=== PATIENT | female | born 1970 | race Caucasian/White ===

== ENCOUNTER 2019-04-03 14:42 | Outpatient (CLI) | payer OTHER, SELFPAY ==
--- NOTE | ~2019-04-03 | MR_ITS ---
EXAMINATION: MR foot RT wo con DATE: 04/03/2019 15:46 INDICATION: Right foot pain TECHNIQUE: Magnetic resonance imaging (MRI) of the right fore/mid foot was performed without intraven ous contrast. Sequences included sagittal T1-weighted FSE, sagittal fluid sensitive FSE STIR, coronal PD-weighted FS FSE, coronal T1-weighted FSE, axial PD-weighted FS FSE, and axial PD-weighted FSE. Ad ditional sagittal T1-weighted FSE and fluid sensitive FSE STIR and axial T2-weighted FS FSE of the mi d and hindfoot. COMPARISON: Right foot radiographs dated 12/08/2018 FINDINGS: Bone alignment is normal. Normal marrow signal with no reactive edema, fracture or pathologic marrow replacing process. Mild osteoarthritis at the first metatarsophalangeal and second and third tarsal m etatarsal joints. Lisfranc ligament complex as well as the collateral ligament complex at the metatar sophalangeal and interphalangeal joints are normal. Intrinsic musculature of the foot as well as the visualized portions of the flexor and extensor tendons appear normal. The medial and lateral stabiliz ing ligaments of the ankle appear normal. Sinus Tarsi is unremarkable. Physiologic amount fluid in th e joint space. No abnormal fluid collections identified. IMPRESSION: 1. Unremarkable MRI of the right foot. No etiology identified for the pain reported at the dorsal asp ect of the lateral midfoot. Reviewed, dictated and finalized at location A. NE PILOT IMPRESSION: 1. Unremarkable MRI of the right foot. No etiology identified for the pain repo rted at the dorsal aspect of the lateral midfoot.
== END 2019-04-03 14:43 | disposition home or self-care (01) ==
LOC: ANHIMG 14:47
PROVIDERS: PCP Physician Assistant Medical; Visit Provider Nurse Practitioner Family
DX: M79.671 Pain in right foot (principal); G89.29 Other chronic pain
CPT/HCPCS: 73718

== ENCOUNTER 2019-11-16 10:38 | Outpatient (CLI) | payer OTHER, SELFPAY ==
--- NOTE | ~2019-11-16 | CT_ITS ---
EXAMINATION: CT abdomen pelvis w con DATE: 11/16/2019 11:05 INDICATION: Right lower quadrant abdominal pain. Hematuria. TECHNIQUE: Computed tomography (CT) of the abdomen and pelvis was performed with 100 cc Omnipaque 350 intravenous contrast. Automated exposure control and iterative reconstruction technique were employe d. Exam dose: 315.30 mGy-cm total exam DLP. COMPARISON: 03/11/2017 CT abdomen pelvis FINDINGS: There are bilateral fat-containing foramen of Bochdalek hernias. The lung bases are clear o f infiltrate or consolidation. There is an approximately 1 cm right hepatic lobe cyst. Status post cholecystectomy. No bile duct dilatation.. Normal splenic size. No pancreatic mass lesion or calcification or ductal dilatation. Normal morphology of the adrenal glands. No renal mass lesion or urinary tract calculus or hydroureteronephrosis. There is an IUD within the uterus. Mild colonic diverticulosis; no CT evidence of diverticulitis. No bowel obstruction, bowel wall thick ening, pneumatosis or intraperitoneal free air. No CT evidence of appendicitis. Normal caliber of the abdominal aorta. No intraperitoneal or retroperitoneal or pelvic mass lesion or adenopathy or ascites. Small fat-containing umbilical hernia. Included skeletal structures are unremarkable. IMPRESSION: Bilateral fat-containing foramen of Bochdalek hernias 1 cm hepatic cyst IUD within uterus Mild colonic diverticulosis; no CT evidence of diverticulitis No CT evidence of appendicitis Reviewed, dictated and finalized at Location A. Reviewed, dictated and finalized at location B.
[2019-11-16 12:04] LABS: Basophils Percent Auto 0.6 % (0.2-1.2); Eosinophils Absolute Auto 0.1 K/mm3 (0-0.3); Eosinophils Percent Auto 2.7 % (0-4.4); Hematocrit 42.6 % (37.0-47.0); Hemoglobin 14.7 g/dL (12.0-15.0); Immature Granulocyte Absolute 0.01 K/mm3 (0.00-0.031); Immature Granulocyte Percent A 0.2 % (0-0.5); Lymphocytes Absolute Auto 1.67 K/mm3 (0.9-3.2); Lymphocytes Percent Auto 31.8 % (18.3-44.2); Mean Corpuscular HGB Conc 34.5 g/dl (32-36); Mean Corpuscular Hemoglobin 31.6 pg (26-34); Mean Corpuscular Volume 91.6 fl (80-100); Mean Platelet Volume 8.8 fl (7.4-10.4); Monocytes Absolute Auto 0.5 K/mm3 (0.1-0.6); Monocytes Percent Auto 8.6 % (2.6-8.5); Neutrophils Percent Auto 56.1 % (45.5-73.1); Platelet Count Result 281 k/mm3 (150-375); Red Blood Count 4.65 M/mm3 (4.2-5.4); White Blood Count 5.3 K/mm3 (4.5-10.0)
[2019-11-16 12:19] LABS: Anion Gap 8 mmol/L (8-16); Blood Urea Nitrogen 11 mg/dL (7-17); Calcium 9.2 mg/dL (8.4-10.2); Carbon Dioxide 32 mmol/L (22-30); Chloride 99 mmol/L (98-107); Cholesterol 191 mg/dL (0-200); Estimated Glomerular Filt Rate > 60; Glucose 93 mg/dL (65-105); HDL Direct 67 mg/dL; Potassium 3.6 mmol/L (3.4-5.0); Sodium 139 mmol/L (137-145); Triglycerides 77 mg/dL (<150)
[2019-11-16 12:30] LABS: LDL Cholesterol Direct 97 mg/dL
[2019-11-16 12:49] LABS: Thyroid Stimulating Hormone 0.488 uIU/mL (0.465-4.680)
[2019-11-16 13:38] LABS: Vitamin D 25 Hydroxy 40.8 ng/mL
== END 2019-11-16 10:39 | disposition home or self-care (01) ==
PROVIDERS: PCP Family Medicine; Referring Provider Nurse Practitioner Family; Visit Provider Physician Assistant Medical
DX: R10.31 Right lower quadrant pain (principal); R31.9 Hematuria, unspecified; Z97.5 Presence of (intrauterine) contraceptive device; K57.30 Diverticulosis of large intestine without perforation or abscess without bleeding
CPT/HCPCS: 36415; 74177; 80048; 80061; 82306; 84443; 85025; Q9967

== ENCOUNTER → 2020-12-29 13:18 | Outpatient (CLI) | payer OTHER, SELFPAY ==
--- NOTE | ~2020-12-29 | MM_ITS ---
EXAMINATION: MM screening [facility] BI w oliver HISTORY: Screening mammogram TECHNIQUE: Craniocaudal and mediolateral oblique 3-D tomosynthesis images were obtained and synthetic 2-D images were generated. CAD analysis was submitted and interpreted. COMPARISON: 07/03/2014 bilateral screening mammogram BREAST PARENCHYMAL COMPOSITION: The breasts are extremely dense, which lowers the sensitivity of mamm ography. FINDINGS: There is a 12 mm mass with spiculation in the upper mid right breast. Approximately 8 mm asymmetry is noted anteriorly in the lower outer left breast. IMPRESSION: 1. Upper mid right breast mass with spiculation and 8 mm asymmetry in the lower outer left breast 2. Bilateral diagnostic mammography and bilateral breast ultrasound examination are recommended BI-RADS Category 0: Incomplete: Needs additional imaging evaluation. Reviewed, dictated and finalized at location A. RY STRIPPER
== END ==
PROVIDERS: PCP Family Medicine; Visit Provider Family Medicine
DX: Z12.31 Encounter for screening mammogram for malignant neoplasm of breast (principal); R92.8 Other abnormal and inconclusive findings on diagnostic imaging of breast
CPT/HCPCS: 77063; 77067

== ENCOUNTER → 2021-02-10 00:35 | Outpatient (CLI) | payer OTHER, SELFPAY ==
[2021-02-10 19:19] LABS: SARS-CoV-2 RNA PCR Negative
== END ==
PROVIDERS: PCP Family Medicine; Visit Provider Physician Assistant Medical
DX: R68.89 Other general symptoms and signs (principal); Z20.822 Contact with and (suspected) exposure to COVID-19
CPT/HCPCS: C9803; U0003; U0005

== ENCOUNTER 2021-02-15 11:59 | Outpatient (CLI) | payer OTHER, SELFPAY ==
--- NOTE | ~2021-02-15 | MMUS_ITS ---
EXAMINATION: MM diagnostic mamta BI w oliver, US breast RT complete HISTORY: Follow-up right breast mass and left breast asymmetry TECHNIQUE: Additional 3-D tomosynthesis images of the breasts were performed and synthetic 2-D images were generated. CAD analysis was submitted and interpreted. High resolution complete right breast ul trasound was performed. COMPARISON: Comparison to multiple prior studies sequentially, with oldest reviewed study dated 07/03. BREAST PARENCHYMAL COMPOSITION: The breasts are extremely dense, which lowers the sensitivity of mamm ography FINDINGS: MAMMOGRAPHIC FINDINGS: There is a spiculated mass in the upper central aspect of the right breast posteriorly. There are no suspicious masses, calcifications or architectural distortion in the left breast to suggest malignanc y. ULTRASOUND: Complete bilateral US of all 4 quadrants of the right breast and retroareolar region was reviewed. At 12:00, 3 cm from the nipple, there is an irregular shaped hypoechoic mass measuring 10 x 8 x 10 mm w ithout significant posterior features or internal vascularity. There is heterogeneous internal echote xture. At 7:00, 3 cm from the nipple, there is an oval hypoechoic mass with parallel orientation, no significant posterior features and no internal vascularity measuring 5 mm maximum dimension, likely b enign. At 5:00, 1 cm from the nipple, there is a probable complicated cyst measuring 4 mm maximum dim ension. IMPRESSION: 1. Spiculated mass of the right breast, upper central aspect with corresponding sonographic abnormali ty measuring 10 mm maximum dimension. Ultrasound-guided right breast biopsy recommended. 2. Probable benign masses of the right breast at 5 and 7:00. Six-month follow-up right breast ultraso und for these abnormalities recommended. BI-RADS category 5, highly suggestive of malignancy. Dr. Axel Chase discussed with Barb Inman from [facility], [facility] office at 02/15/2021 13:[address] Reviewed, dictated and finalized at location A. HER GOODS ASSEMBLER IMPRESSION: 1. Spiculated mass of the right breast, upper central aspect with corresponding sonographic abnormality measuring 10 mm maximum dimension. Ultrasound-guided r ight breast biopsy recommended. 2. Probable benign masses of the right breast at 5 and 7:00. Six-month follow-u p right breast ultrasound for these abnormalities recommended. BI-RADS category 5, highly suggestive of malignancy. Dr. Axel Chase discussed with Barb Inman from [facility], [facility] office at 02/15/2021 13:20 LEATHER [employer] ASSEMBLER. IMPRESSION: 1. Spiculated mass of the right breast, upper central aspect with corresponding sonographic abnormality measuring 10 mm maximum dimension. Ultrasound-guided r ight breast biopsy recommended. 2. Probable benign masses of the right breast at 5 and 7:00. Six-month follow-u p right breast ultrasound for these abnormalities recommended. BI-RADS category 5, highly suggestive of malignancy. Dr. Axel Chase discussed with Barb Inman from [facility], [facility] office at 02/15/2021 13:20 [employer] AS[employer]ER.
== END 2021-02-15 12:00 | disposition home or self-care (01) ==
LOC: ANHIMG 12:00
PROVIDERS: PCP Family Medicine; Visit Provider Nurse Practitioner Family
DX: R92.8 Other abnormal and inconclusive findings on diagnostic imaging of breast (principal)
CPT/HCPCS: 76641; 77062; 77066; G0279

== ENCOUNTER 2021-02-22 10:20 | Outpatient (CLI) | payer OTHER, SELFPAY ==
--- NOTE | ~2021-02-22 | MMUS_ITS ---
EXAMINATION: US breast biopsy RT w image, MM post biopsy invasive RT DATE: 02/22/2021 11:41 (accession [id number]), 02/22/2021 11:39 (accession [id number]) INDICATION: Right breast mass at the 12:00 location Ultrasound-guided core biopsy is requested to [facility] for malignancy. TECHNIQUE AND FINDINGS: The risks and potential benefits of the procedure were discussed with the patient including bleeding, infection, and nondiagnostic specimen. A time out was performed. The skin of the right breast was pr epared and draped in usual sterile fashion. 1% lidocaine was used for superficial anesthesia. 1% lido doc with epinephrine was used for deep anesthesia. A vacuum-assisted biopsy gun needle was advanced through to the outer edge of the region of interest from an inferolateral approach utilizing sonographic guidance. A total of seven tissue core samples w ere obtained through the lesion. A tissue marker clip was then placed at the biopsy site. Hemostasis was achieved. A sterile bandage was applied. The patient tolerated procedure well and there was no evidence of immediate complication. The patient was given verbal instructions to return to the Emergency Department in the event of severe breast pa in or rapid breast enlargement. A two view right breast mammogram was obtained to document tissue mar ker clip placement. IMPRESSION: 1. Successful ultrasound-guided vacuum-assisted biopsy of right breast mass with tissue marker placem ent. Reviewed, dictated and finalized at location A. OBIOLOGY LAB MANAGER IMPRESSION: 1. Successful ultrasound-guided vacuum-assisted biopsy of right breast mass wit h tissue marker placement.
== END 2021-02-22 10:21 | disposition home or self-care (01) ==
LOC: ANHIMG 10:26
PROVIDERS: PCP Family Medicine; Visit Provider Nurse Practitioner Family
DX: D05.91 Unspecified type of carcinoma in situ of right breast (principal)
CPT/HCPCS: 19083; 88305; 88342; 88360; A4648

== ENCOUNTER 2021-07-17 08:41 | Emergency (ER) | payer OTHER, SELFPAY ==
[2021-07-17 08:47] VITALS: BP 106/68; PULSE 62; RESP 18; TEMP 36.6; O2SAT 99
[2021-07-17] MEDS: valACYclovir HCL 500 MG TABLET 1000 MG PO (09:26)
--- NOTE | 2021-07-17 10:15 | ED.SKABFB ---
HPI - Skin/Abscess/Foreign Bdy General Chief complaint: Skin/Abscess/Foreign Body Stated complaint: shingles Time Seen by Provider: 07/17/21 08:52 History of Present Illness HPI narrative: 50-year-old female with history of shingles presents with 1 day of noticing some itchiness and stinging in her left face/top of her head, it feels similar to the last when she had a shingles outbreak, she has not noticed much of a rash other than a small red dot on the left forehead. She is unsure if her vision is blurrier or not but does state that her left eye may be slightly irritated. No changes in hearing. No fevers no chills. Related Data Allergies Allergy/AdvReac Type Severity Reaction Status Date / Time lansoprazole Allergy Severe FACE Verified 01/27/21 08:36 SWELLING ,RED Review of Systems Review of Systems: CONST: No fever. HEENT: Rash left face that is tingling C/V: No chest pain RESP: No cough GI: No nausea vomiting : No dysuria. M/S: No joint pain. SKIN: Rash above NEURO: Tingling sensation left face/head PSYCH: [No depression] PMFSH Past Medical History Medical History Body mass index (BMI) less than 20 Breast cancer, right breast Depression Encounter for screening colonoscopy Family hx of colon cancer requiring screening colonoscopy Invasive ductal carcinoma of breast Mass of right breast on mammogram Screening mammogram, encounter for Surgical History Surgical History History of biliary duct stent placement 2006 5 days after lap jeni due to SBO Hx laparoscopic cholecystectomy 2006 Family History Family History Grandparent Hypertension Family history of malignant neoplasm Family history of malignant neoplasm of breast Family history of coronary artery disease Diabetes mellitus Father Cerebrovascular accident Family history of heart disease in male family member before age 55 Alcohol abuse Seizure disorder Mother Hypertension Diabetes mellitus Kidney disease DM type 2 with diabetic mixed hyperlipidemia End stage renal disease Son No problems noted. Sibling No problems noted. 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 HEART: [Regular rate and rhythm] ABD: No lesions EXT: Normal range of motion SKIN: Lesions on the face as above NEURO: [Alert and oriented x 3. No gross focal sensory or strength deficits.] PSYCH: Normal affect Course Vital Signs Vital signs: Vital Signs Temperature 98 F 07/17/21 08:47 Pulse Rate 62 07/17/21 08:47 Respiratory Rate 18 07/17/21 08:47 Blood Pressure 106/68 07/17/21 08:47 Pulse Oximetry 99 07/17/21 08:47 Oxygen Delivery Room Air 07/17/21 08:47 Temperature 98 F 07/17/21 08:47 Pulse Rate 62 07/17/21 08:47 Respiratory Rate 18 07/17/21 08:47 Blood Pressure 106/68 07/17/21 08:47 Pulse Oximetry 99 07/17/21 08:47 Oxygen Delivery Room Air 07/17/21 08:47 MDM - Skin/Abscess/Foreign Bdy MDM Narrative Medical decision making narrative: 50-year-old female presents
== END 2021-07-17 10:45 | disposition home or self-care (01) ==
PROVIDERS: Emergency Provider Emergency Medicine; PCP Family Medicine
DX: B02.9 Zoster without complications (principal); Z85.3 Personal history of malignant neoplasm of breast; F17.210 Nicotine dependence, cigarettes, uncomplicated
CPT/HCPCS: 99283; A9270

== ENCOUNTER 2021-09-29 01:08 | Day surgery (SDC) | payer OTHER, SELFPAY ==
[2021-09-18 12:07] VITALS: BMI 16.6
--- NOTE | 2021-09-28 13:28 | WPDANESEPPF ---
Anes - Initial Pre Proc Eval Procedure: Operation Date: 09/29/21 09:00 Proposed Procedures p Screening Colonoscopy - Karl Mckinney MD Date/Time: 09/28/21 13:28 Surgeon: Karl Mckinney MD Pre Op Diagnosis: neoplasm screening Patient Data Age: 51 Gender: F Height: 1.75 m Weight: 51 kg Allergies Allergy/AdvReac Type Severity Reaction Status Date / Time lansoprazole Allergy Severe FACE Verified 09/29/21 08:06 SWELLING ,RED nickel Allergy Intermediate Rash Verified 09/29/21 08:06 Home Medications Medication Instructions Recorded Confirmed Type sodium sul 1.479 gram-potas ch See Rx Instructions PO PER PKG DIR 07/21/21 09/18/21 Rx 0.188 gram-magnes sul 0.225 gram #24 tabs tablet (Sutab) cyclobenzaprine 10 mg tablet 10 mg PO QHS PRN muscle spasm #30 09/07/21 09/18/21 Rx tabs clonazepam 1 mg tablet 1 - 2 mg PO .QHS PRN anxiety 09/18/21 09/18/21 History fluconazole 150 mg tablet 150 mg PO ONCE PRN OTHER 09/18/21 09/18/21 History (Diflucan) methylphenidate HCl 10 mg tablet 10 mg PO BID PRN OTHER 09/18/21 09/18/21 History (Ritalin) Patient hx anesthesia problems: none Family hx anesthesia problems: none Results Review: All pre-operative results and documents have been reviewed as part of the pre-operative evaluation. [facility] Past Medical History Medical History (Updated 09/28/21 @ 13:28 by Damián Toure DO) ADD (attention deficit disorder) Body mass index (BMI) less than 20 Breast cancer, right breast Depression Encounter for screening colonoscopy Family hx of colon cancer requiring screening colonoscopy Invasive ductal carcinoma of breast Mass of right breast on mammogram Screening mammogram, encounter for Surgical History Surgical History H/O mastectomy History of biliary duct stent placement 2006 5 days after lap jeni due to SBO Hx laparoscopic cholecystectomy 2006 Family History Family History Grandparent Hypertension Family history of malignant neoplasm Family history of malignant neoplasm of breast Family history of coronary artery disease Diabetes mellitus Father Cerebrovascular accident Family history of heart disease in male family member before age 55 Alcohol abuse Seizure disorder Mother Hypertension Diabetes mellitus Kidney disease DM type 2 with diabetic mixed hyperlipidemia End stage renal disease Son No problems noted. Sibling No problems noted. 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 Informed Consent: The patient's anesthetic plan and its attendant risks and benefits were discussed with the patient/family/POA. Questions were solicited and answers provided to the satisfaction of the patient/family/POA.
[2021-09-29 08:07] VITALS: BP 105/62; PULSE 60; RESP 20; TEMP 36.2; O2SAT 100
[2021-09-29] MEDS: LACTATED RINGERS 1,000 ML 150 ML IV CONT (08:16)
--- NOTE | 2021-09-29 08:39 | PM.HPGS ---
History of Present Illness History of Present Illness Consent: Risks, benefits, and alternatives have been discussed and questions answered. Patient agrees to proceed with procedure. Chief complaint: neoplasm screening Narrative: Annelsie Elliott is a 51 year old female here for first screening colonoscopy Review of Systems Constitutional: Constitutional: Denies headache(s) and Denies weakness Eyes: Eyes: Denies blurry vision ENT: Reports Normal hearing present, Denies headache(s) and Denies neck pain Cardiovascular: Cardiovascular: Denies chest pain and Denies dyspnea Respiratory: Respiratory: Denies dyspnea Gastrointestinal: Gastrointestinal: Reports no additional gastrointestinal complaints Genitourinary: Genitourinary: Denies dysuria Musculoskeletal: Musculoskeletal: Denies neck pain Integumentary/Breasts: Skin/Breast: Denies dry skin Neurologic: Reports Normal hearing present, Denies headache(s) and Denies weakness Psychiatric: Psychiatric: Denies anxiety Endocrine: Endocrine: Denies change in body appearance Hematologic/Lymphatic: Hematologic/Lymphatic: Denies easy bleeding Allergic/Immunologic: Allergic/Immunologic: Denies urticaria PMFSH Past Medical History Medical History (Updated 09/28/21 @ 13:28 by Damián Toure DO) ADD (attention deficit disorder) Body mass index (BMI) less than 20 Breast cancer, right breast Depression Encounter for screening colonoscopy Family hx of colon cancer requiring screening colonoscopy Invasive ductal carcinoma of breast Mass of right breast on mammogram Screening mammogram, encounter for Surgical History Surgical History H/O mastectomy History of biliary duct stent placement 2006 5 days after lap jeni due to SBO Hx laparoscopic cholecystectomy 2006 Family History Family History Grandparent Hypertension Family history of malignant neoplasm Family history of malignant neoplasm of breast Family history of coronary artery disease Diabetes mellitus Father Cerebrovascular accident Family history of heart disease in male family member before age 55 Alcohol abuse Seizure disorder Mother Hypertension Diabetes mellitus Kidney disease DM type 2 with diabetic mixed hyperlipidemia End stage renal disease Son No problems noted. Sibling No problems noted. 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 Gender identity (if verbalized by the patient): Female Spiritual care concerns: No Meds Home Medications and Allergies Home Medications Medication Instructions Recorded Confirmed Type sodium sul 1.479 gram-potas ch See Rx Instructions PO PER PKG DIR 07/21/21 09/18/21 Rx 0.188 gram-magnes sul 0.225 gram #24 tabs tablet (Sutab) cyclobenzaprine 10 mg tablet 10 mg PO QHS PRN muscle spasm #30 09/07/21 09/18/21 Rx tabs clonazepam 1 mg tablet 1 - 2 mg PO .QHS PRN anxiety 09/18/21 09/18/21 History fluconazole 150 mg tablet 150 mg PO ONCE PRN OTHER 09/18/21 09/18/21 History (Diflucan) methylphenidate HCl 10 mg tablet 10 mg PO BID PRN OTHER 09/18/21 09/18/21 History (Ritalin) Allergies Allergy/AdvReac Type Severity Reaction Status Date / Time lansoprazole Allergy Severe FACE Verified 09/29/21 08:06 SWELLING ,RED nickel Allergy Intermediate Rash Verified 09/29/21 08:06 Vital Signs Vital Signs - 24 hr 09/29/21 08:07 Temperature 97.2 F L Pulse Rate 60 Respiratory Rate 20 Bloo
[2021-09-29 09:06] VITALS: BP 91/52; PULSE 66; RESP 22; O2SAT 98
[2021-09-29 09:16] VITALS: BP 90/57; PULSE 60; RESP 18; O2SAT 100
[2021-09-29 09:26] VITALS: BP 96/64; PULSE 64; RESP 17; O2SAT 99
== END 2021-09-29 09:36 | disposition home or self-care (01) ==
PROVIDERS: PCP Family Medicine; Visit Provider Internal Medicine Gastroenterology
PROC: 0DJD8ZZ Inspection of Lower Intestinal Tract, Via Natural or Artificial Opening Endoscopic (ICD-10-PCS; CPT 45378; principal; 2021-09-29 09:00)
DX: Z12.11 Encounter for screening for malignant neoplasm of colon (principal); K62.1 Rectal polyp; K64.8 Other hemorrhoids; F98.8 Other specified behavioral and emotional disorders with onset usually occurring in childhood and adolescence; F32.A Depression, unspecified; Z85.3 Personal history of malignant neoplasm of breast
CPT/HCPCS: 45385; 88305; J2704; J7120

== ENCOUNTER 2021-11-28 15:06 | Emergency (ER) | payer OTHER, SELFPAY ==
[2021-11-28 15:37] VITALS: BP 108/74; PULSE 90; RESP 16; TEMP 36.2; O2SAT 99
[2021-11-28 15:53] LABS: Hematocrit 36.6 % (37.0-47.0); Hemoglobin 12.6 g/dL (12.0-15.0); Mean Corpuscular HGB Conc 34.4 g/dl (32-36); Mean Corpuscular Volume 89.9 fl (80-100); Mean Platelet Volume 9.1 fl (7.4-10.4); Platelet Count Result 261 k/mm3 (150-375); Red Blood Count 4.07 M/mm3 (4.2-5.4); White Blood Count 8.2 K/mm3 (4.5-10.0)
[2021-11-28 16:05] LABS: Alanine Aminotransferase 38 U/L (6-35); Albumin Level 3.8 g/dL (3.5-5.1); Alkaline Phosphatase 60 U/L (38-126); Anion Gap 10 mmol/L (8-16); Aspartate Amino Transferase 42 U/L (14-36); Bilirubin,Total 0.8 mg/dL (0.2-1.3); Blood Urea Nitrogen 21 mg/dL (7-17); Calcium 8.4 mg/dL (8.4-10.2); Carbon Dioxide 31 mmol/L (22-30); Chloride 88 mmol/L (98-107); Estimated CRCL calculation 57 ml/min; Estimated Glomerular Filt Rate > 60; Glucose 115 mg/dL (65-110); Lipase 20 U/L (23-300); Potassium 3.2 mmol/L (3.4-5.0); Sodium 129 mmol/L (137-145)
[2021-11-28 16:08] LABS: Add Urine Microscopic? YES; Appearance Urine Cloudy (Clear); Bilirubin Urine Negative (Negative); Blood Urine 2+ (Negative); Color Urine Amber (Yellow); Glucose Urine UA Negative (Negative); Ketones Urine Negative (Negative); Leukocyte Esterase Ur Negative LEU/UL (Negative); Mucus Urine Rare /lpf; Nitrate Urine Negative (Negative); Protein Urine 2+ mg/dL (Negative); Specific Grav Ur 1.024 (1.001-1.035); Squamous Epithelial Cell Urine Moderate /hpf (Few); Urobilinogen Urine Negative mg/dL (<2.0); WBC Urine 0-3 /hpf
[2021-11-28 16:17] LABS: Band Neutrophils Percent 18 % (0-6); Lymphocytes Absolute Manual 1.31 K/mm3 (1.1-4.5); Lymphocytes Percent Manual 16 % (18-44); Monocytes Percent Manual 11 % (3-9); Neutrophils Absolute Manual 5.98 K/mm3 (1.7-7.2); Neutrophils Percent Manual 55 % (46-73); Platelet Estimate Adequate (Adequate); Total Cells Counted 100
[2021-11-28 16:19] LABS: Schistocytes None Seen (NORMAL)
--- NOTE | 2021-11-28 18:41 | ED.NAVMDI ---
HPI - Nausea/Vomiting/Diarrhea General Chief complaint: Nausea/Vomiting/Diarrhea Stated complaint: N/V/D (had seafood while [place] of the country) Time Seen by Provider: 11/28/21 18:27 History of Present Illness HPI Narrative: 51-year-old female presents to the emergency room for evaluation of nausea vomiting and diarrhea for 5 days. Patient states that she recently returned from the [facility], where she believes she ate some bad fish. Patient states that she has had multiple episodes of nonmelanotic nonbloody diarrhea since returning. Patient is now complaining of abdominal cramping. Related Data Home Medications Medication Instructions Recorded Confirmed fluconazole 150 mg tablet 150 mg PO ONCE PRN OTHER 09/18/21 09/18/21 (Diflucan) methylphenidate HCl 10 mg tablet 10 mg PO BID PRN OTHER 09/18/21 09/18/21 (Ritalin) Allergies Allergy/AdvReac Type Severity Reaction Status Date / Time lansoprazole Allergy Severe FACE Verified 11/28/21 18:09 SWELLING ,RED nickel Allergy Intermediate Rash Verified 11/28/21 18:09 Review of Systems Review of Systems: CONSTITUTIONAL: Denies fever, chills, or sweats. EYES: Denies visual changes, redness, or discharge. ENT: Denies rhinorrhea, congestion, sore throat, or otalgia. CARDIOVASCULAR: Denies chest pain, palpitations, or edema. RESPIRATORY: Denies cough or dyspnea. GASTROINTESTINAL: Reports abdominal cramping, nausea, vomiting, and diarrhea. GENITOURINARY: Denies dysuria or hematuria. SKIN: Denies rash or itching. MUSCULOSKELETAL: Denies back pain, joint pain, or myalgia. NEUROLOGIC: Denies headache, numbness, dizziness, or weakness. PSYCHIATRIC: Denies anxiety or depression. [facility] Past Medical History Medical History ADD (attention deficit disorder) Body mass index (BMI) less than 20 Breast cancer, right breast Depression Encounter for screening colonoscopy Family hx of colon cancer requiring screening colonoscopy Invasive ductal carcinoma of breast Mass of right breast on mammogram Screening mammogram, encounter for Surgical History Surgical History H/O mastectomy History of biliary duct stent placement 2006 5 days after lap jeni due to SBO Hx laparoscopic cholecystectomy 2006 Family History Family History Grandparent Hypertension Family history of malignant neoplasm Family history of malignant neoplasm of breast Family history of coronary artery disease Diabetes mellitus Father Cerebrovascular accident Family history of heart disease in male family member before age 55 Alcohol abuse Seizure disorder Mother Hypertension Diabetes mellitus Kidney disease DM type 2 with diabetic mixed hyperlipidemia End stage renal disease Son No problems noted. Sibling No problems noted. 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 HEAD: Normocephalic, atraumatic. EYES: Conjunctivae normal, PERRLA and EOMI. CHEST: Clear to auscultation. No respiratory distress. No wheezes rales or rhonchi. No tenderness. HEART: Regular rate and rhythm. No murmur heard. Normal peripheral pulses. ABDOMEN: Soft, nontender, nondistended, normal active bowel sounds. EXTREMITIES: Normal range of motion. No edema. No clubbing or cyanosis S
[2021-11-28] MEDS: SODIUM CHLORIDE 0.9% IV 1,000 ML 999 ML IV CONT ×2 (18:44)
[2021-11-28] MEDS: DICYCLOMINE HCL INJ 20 MG/2 ML VIAL IM (18:44)
--- NOTE | 2021-11-28 19:15 | PC.NURSE ---
Patient report received from CLARISA Das. All questions answered and care of patient assumed. Patient resting quietly in stretcher with lights dimmed and at bedside. Call-light within reach. Patient continues to complain of significant abdominal cramping. IM medication just received 30 minutes prior. Education provided on time of onset. IVF continue to infuse as ordered. Will continue to address needs as they arise.
[2021-11-28 19:51] VITALS: BP 109/67; O2SAT 100
[2021-11-28 20:35] VITALS: O2SAT 100
[2021-11-28 20:38] VITALS: BP 106/70
== END 2021-11-28 20:48 | disposition home or self-care (01) ==
PROVIDERS: Emergency Medicine; Emergency Provider Nurse Practitioner Family; PCP Family Medicine
DX: K52.9 Noninfective gastroenteritis and colitis, unspecified (principal); F98.8 Other specified behavioral and emotional disorders with onset usually occurring in childhood and adolescence; F32.A Depression, unspecified; Z90.13 Acquired absence of bilateral breasts and nipples; Z85.3 Personal history of malignant neoplasm of breast
CPT/HCPCS: 36415; 80053; 81001; 83605; 83690; 85025; 96360; 96372; 99283; J0500; J7030

== ENCOUNTER 2022-07-20 11:15 | Emergency (ER) | payer OTHER, SELFPAY ==
[2022-07-20 11:30] VITALS: BP 105/75; PULSE 78; RESP 16; TEMP 36.7; O2SAT 100
--- NOTE | 2022-07-20 11:35 | ED.URI ---
HPI - URI/Sore Throat General Chief Complaint: Upper Respiratory Infection Stated Complaint: sinus pressure,ear pain,sore throat,diarrhea Time Seen by Provider: 07/20/22 11:32 Source: patient Mode of arrival: ambulatory Limitations: no limitations History of Present Illness HPI Narrative: Annelise is a 51-year-old female patient presenting to the clinic today with complaints of sinus pressure, bilateral ear pain, sore throat, and diarrhea times 3 weeks. She reports that her son tested positive for strep yesterday. Denies any known fever or chills. MD elicited complaint: sore throat, rhinorrhea, nasal congestion, sinus pain and other (Diarrhea) Related Data Home Medications Medication Instructions Recorded Confirmed methylphenidate HCl 10 mg tablet 10 mg PO DAILY 07/20/22 07/20/22 Allergies Allergy/AdvReac Type Severity Reaction Status Date / Time lansoprazole Allergy Severe FACE Verified 07/20/22 11:25 SWELLING ,RED nickel Allergy Intermediate Rash Verified 07/20/22 11:25 Review of Systems Review of Systems: Pertinent positives per HPI. Patient denies any fever, chills, rash, visual changes, dizziness, shortness of breath, chest pain, palpitations, nausea, vomiting, diarrhea, constipation, abdominal pain, or any urinary issues. [facility] Past Medical History Medical History ADD (attention deficit disorder) Body mass index (BMI) less than 20 Breast cancer, right breast Depression Encounter for screening colonoscopy Family hx of colon cancer requiring screening colonoscopy Invasive ductal carcinoma of breast Mass of right breast on mammogram Screening mammogram, encounter for Surgical History Surgical History H/O mastectomy History of biliary duct stent placement 2006 5 days after lap jeni due to SBO Hx laparoscopic cholecystectomy 2006 Family History Family History Grandparent Hypertension Family history of malignant neoplasm Family history of malignant neoplasm of breast Family history of coronary artery disease Diabetes mellitus Father Cerebrovascular accident Family history of heart disease in male family member before age 55 Alcohol abuse Seizure disorder Mother Hypertension Diabetes mellitus Kidney disease DM type 2 with diabetic mixed hyperlipidemia End stage renal disease Son No problems noted. Sibling No problems noted. 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 There is no relevant family history pertinent to the patient complaint. Exam Narrative: General: Well-developed, well nourished, in no apparent distress Head: Normocephalic, atraumatic Eyes: Pupils equally round and reactive to light bilaterally, EOM intact, sclera and conjunctive clear, no discharge, lids normal Ears: TMs intact and congestive, ear canals clear, no drainage, grossly he
== END 2022-07-20 11:43 | disposition home or self-care (01) ==
PROVIDERS: Emergency Provider Nurse Practitioner Family; PCP Family Medicine
DX: J01.90 Acute sinusitis, unspecified (principal); J02.9 Acute pharyngitis, unspecified; Z20.818 Contact with and (suspected) exposure to other bacterial communicable diseases; F98.8 Other specified behavioral and emotional disorders with onset usually occurring in childhood and adolescence
CPT/HCPCS: 87081; 87880; 99213; G0463

== ENCOUNTER 2022-10-25 08:17 | Emergency (ER) | payer OTHER, SELFPAY ==
[2022-10-25 08:27] VITALS: BP 107/80; PULSE 78; RESP 16; TEMP 36.7; O2SAT 100
--- NOTE | 2022-10-25 08:40 | ED.FEMALEGU ---
HPI - Female Genitourinary General Chief complaint: Urogenital-Female Stated complaint: Uti symptoms;Yeast infection Time Seen by Provider: 10/25/22 08:40 Source: patient Mode of arrival: ambulatory Limitations: no limitations History of Present Illness HPI Narrative: Patient is a 52-year-old female that presents with 1 week of worsening burning with urination, frequency and right-sided flank pain that started yesterday. Also having vaginal discharge, fishy smelling odor and pain with intercourse. Patient states everything started 2 weeks ago after she had an incident where penis went into her rectum and then back into her vagina. Patient states she is also prone to UTIs and bacterial vaginosis and has been treated in the past. Patient has tried Monistat and fluconazole with no relief of symptoms. Denies any fever, chills, nausea, vomiting, diarrhea. In MD elicited complaint: dysuria Related Data Allergies Allergy/AdvReac Type Severity Reaction Status Date / Time lansoprazole Allergy Severe FACE Verified 10/25/22 08:29 SWELLING ,RED nickel Allergy Intermediate Rash Verified 10/25/22 08:29 Review of Systems Review of Systems: All systems reviewed & are unremarkable except as noted in HPI and below Constitutional: Constitutional: Denies chills, Denies fever(s), Denies headache(s), Denies malaise and Denies weakness Eyes: Eyes: Denies change in vision, Denies eye discharge and Denies irritation ENT: Denies otalgia, Denies headache(s), Denies nasal congestion, Denies nasal discharge, Denies sinus pain and Denies sore throat Cardiovascular: Cardiovascular: Denies chest pain, Denies edema, Denies palpitations and Denies dyspnea Respiratory: Respiratory: Denies cough and Denies dyspnea Gastrointestinal: Gastrointestinal: Denies abdominal pain, Denies diarrhea, Denies nausea and Denies vomiting Genitourinary: Genitourinary: Denies hematuria, Reports nocturia, Reports genital pruritis, Reports dyspareunia, Reports dysuria, Reports flank pain, Reports urinary urgency, Reports vaginal discharge, Reports vaginal odor and Reports vaginal pruritus Musculoskeletal: Musculoskeletal: Denies back pain and Denies numbness Integumentary/Breasts: Skin/Breast: Denies pruritus and Denies rash Neurologic: Denies headache(s), Denies numbness and Denies weakness Psychiatric: Psychiatric: Reports no additional psychiatric complaints Endocrine: Endocrine: Denies palpitations PMFSH Past Medical History Medical History ADD (attention deficit disorder) Body mass index (BMI) less than 20 Breast cancer, right breast Depression Encounter for screening colonoscopy Family hx of colon cancer requiring screening colonoscopy Invasive ductal carcinoma of breast Mass of right breast on mammogram Screening mammogram, encounter for Surgical History Surgical History H/O mastectomy History of biliary duct stent placement 2006 5 days after lap jeni due to SBO Hx laparoscopic cholecystectomy 2006 Family History Family History Grandparent Hypertension Family history of malignant neoplasm Family history of malignant neoplasm of breast Family history of coronary artery disease Diabetes mellitus Father Cerebrovascular accident Family history of heart disease in male family member before age 55 Alcohol abuse Seizure disorder Mother Hypertension Diabetes mellitus Kidney disease DM type 2 with diabetic mixed hyperlipidemia End stage renal disease Son No problems noted. Sibling No problems noted. Other Carcinoma of colon Social History Social History Smoking status: Never smoker Second hand tobacco smoke exposure: No Alcohol intake: current Alcohol us
== END 2022-10-25 09:06 | disposition home or self-care (01) ==
PROVIDERS: Emergency Provider Nurse Practitioner Family; PCP Family Medicine
DX: N76.0 Acute vaginitis (principal); N30.01 Acute cystitis with hematuria; F12.90 Cannabis use, unspecified, uncomplicated; F98.8 Other specified behavioral and emotional disorders with onset usually occurring in childhood and adolescence; Z85.3 Personal history of malignant neoplasm of breast; Z90.13 Acquired absence of bilateral breasts and nipples
CPT/HCPCS: 81003; 87086; 87088; 99213; G0463

== ENCOUNTER 2023-02-10 12:35 | Emergency (ER) | payer OTHER, SELFPAY ==
[2023-02-10 13:31] VITALS: BP 117/88; PULSE 72; RESP 16; TEMP 36.6; O2SAT 100
--- NOTE | 2023-02-10 14:31 | ED.GENADULT ---
HPI - General Adult General Chief complaint: Upper Respiratory Infection Stated complaint: Covid symptoms Source: patient Mode of arrival: ambulatory Limitations: no limitations History of Present Illness HPI narrative: Patient presents for evaluation of sick symptoms for last 2 weeks. She initially thought she had a cold. She now reports sore throat, sinus congestion, postnasal drainage, bilateral otalgia and nausea. She denies any loss of sense of taste or smell. Denies any significant cough, shortness of breath, vomiting or diarrhea. Her boyfriend, her daughter, and her daughter's boyfriend are all sick at the present time. The four of them live in the same household. Her daughter is here being evaluated and tested positive for COVID. She has been taking sudafed for her symptoms. Related Data Allergies Allergy/AdvReac Type Severity Reaction Status Date / Time lansoprazole Allergy Severe FACE Verified 10/31/22 12:48 SWELLING ,RED nickel Allergy Intermediate Rash Verified 10/31/22 12:48 Review of Systems Review of Systems: CONSTITUTIONAL: Denies fever, chills, or sweats. EYES: Denies visual changes, redness, or discharge. ENT: Reports sinus congestion, postnasal drainage, sore throat and otalgia. CARDIOVASCULAR: Denies chest pain, palpitations, or edema. RESPIRATORY: Denies cough or dyspnea. GASTROINTESTINAL: Reports nausea.Denies abdominal pain, vomiting, or diarrhea. GENITOURINARY: Denies dysuria or hematuria. SKIN: Denies rash or itching. MUSCULOSKELETAL: Denies back pain, joint pain, or myalgia. NEUROLOGIC: Denies headache, numbness, dizziness, or weakness. PSYCHIATRIC: Denies anxiety or depression. [facility] Past Medical History Medical History ADD (attention deficit disorder) Body mass index (BMI) less than 20 Breast cancer, right breast Depression Encounter for screening colonoscopy Family hx of colon cancer requiring screening colonoscopy Invasive ductal carcinoma of breast Mass of right breast on mammogram Screening mammogram, encounter for Surgical History Surgical History H/O mastectomy History of biliary duct stent placement 2006 5 days after lap jeni due to SBO Hx laparoscopic cholecystectomy 2006 Family History Family History Grandparent Hypertension Family history of malignant neoplasm Family history of malignant neoplasm of breast Family history of coronary artery disease Diabetes mellitus Father Cerebrovascular accident Family history of heart disease in male family member before age 55 Alcohol abuse Seizure disorder Mother Hypertension Diabetes mellitus Kidney disease DM type 2 with diabetic mixed hyperlipidemia End stage renal disease Son No problems noted. Sibling No problems noted. 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 HEAD: Normocephalic, atraumatic. EYES: PERRLA
== END 2023-02-10 14:38 | disposition home or self-care (01) ==
PROVIDERS: Emergency Provider Nurse Practitioner; PCP Family Medicine
DX: Z20.822 Contact with and (suspected) exposure to COVID-19 (principal); Z85.3 Personal history of malignant neoplasm of breast
CPT/HCPCS: 87081; 87426; 87804; 87880; 99213; C9803; G0463

== ENCOUNTER 2023-10-02 16:44 | Emergency (ER) | payer OTHER, SELFPAY ==
[2023-10-02 16:58] VITALS: BP 121/81; PULSE 72; RESP 16; TEMP 36.5; O2SAT 100
--- NOTE | 2023-10-02 17:00 | ED.URI ---
HPI - URI/Sore Throat General Chief Complaint: Upper Respiratory Infection Stated Complaint: NAUSEA/FEVER/TIRED/SORE THROAT/DECREASED APPETITE Time Seen by Provider: 10/02/23 17:01 History of Present Illness HPI Narrative: 53 y/o female presented for c/o sore throat, headache, malaise, body aches, sinus pressure/congestion, cough, fever/chills. Also endorses nausea and decreased appetite, and diarrhea x2 days. Denies sob, wheezing, lethargy, or chest pain. Took Tylenol for symptoms. Boyfriend with similar symptoms, states he tested negative for covid. Related Data Allergies Allergy/AdvReac Type Severity Reaction Status Date / Time lansoprazole Allergy Severe FACE Verified 10/02/23 16:48 SWELLING ,RED nickel Allergy Intermediate Rash Verified 10/02/23 16:48 Review of Systems Review of Systems: CONSTITUTIONAL: reports body aches, fever, chills EYES: Denies visual changes, redness, or discharge. ENT: Denies rhinorrhea, congestion, or otalgia. CARDIOVASCULAR: Denies chest pain, palpitations, or edema. RESPIRATORY: Denies dyspnea. GASTROINTESTINAL: Denies abdominal pain, vomiting reports nausea, diarrhea. SKIN: Denies rash, itching MUSCULOSKELETAL: Denies back pain, joint pain NEUROLOGIC: reports headache PMFSH Past Medical History Medical History ADD (attention deficit disorder) Anxiety Breast cancer, right breast Cervical muscle pain Depression Encounter for screening colonoscopy Exposure to 2018-nCoV Family hx of colon cancer requiring screening colonoscopy Herpes simplex disease History of iron deficiency Invasive ductal carcinoma of breast Mass of right breast on mammogram Pain in the coccyx Screening mammogram, encounter for Wellness examination Surgical History Surgical History H/O mastectomy History of biliary duct stent placement 2006 5 days after lap jeni due to SBO Hx laparoscopic cholecystectomy 2006 Family History Family History Grandparent Hypertension Family history of malignant neoplasm Family history of malignant neoplasm of breast Family history of coronary artery disease Diabetes mellitus Father Cerebrovascular accident Family history of heart disease in male family member before age 55 Alcohol abuse Seizure disorder Mother Hypertension Diabetes mellitus Kidney disease DM type 2 with diabetic mixed hyperlipidemia End stage renal disease Son No problems noted. Sibling No problems noted. 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 EYES: conjunctivae clear ENT: Mucous membranes moist. TMs pearly french with normal light reflex bilaterally; no tragal tenderness. Oropharynx not erythematous without lesions. Tonsils not enlarged and without exudate. No drooling, no hoarseness, no trismus, uvula midline. No tripod positioning, hot potato voice, or soft palate swelling. NECK: Supple. No lymphadenopathy CHEST: Clear to ausc
[2023-10-02 17:20] LABS: EDSTREPNEGPOS1 Presumptive Negative
== END 2023-10-02 17:20 | disposition home or self-care (01) ==
PROVIDERS: Emergency Provider Nurse Practitioner Family; PCP Family Medicine
DX: B34.9 Viral infection, unspecified (principal); Z20.822 Contact with and (suspected) exposure to COVID-19; F12.90 Cannabis use, unspecified, uncomplicated; Z85.3 Personal history of malignant neoplasm of breast; F98.8 Other specified behavioral and emotional disorders with onset usually occurring in childhood and adolescence; F41.9 Anxiety disorder, unspecified
CPT/HCPCS: 87081; 87426; 87880; 99213; G0463

== ENCOUNTER 2023-11-15 14:36 | Emergency (ER) | payer OTHER, SELFPAY ==
--- NOTE | 2023-11-15 14:41 | ED.FEMALEGU ---
HPI - Female Genitourinary General Chief complaint: Urogenital-Female Stated complaint: Urinary Problems, Tailbone Pain Time Seen by Provider: 11/15/23 14:41 Source: patient Mode of arrival: ambulatory Limitations: no limitations History of Present Illness HPI Narrative: Annelise is a 53-year-old female patient presenting to the clinic today with complaints of tailbone pain and bacterial vaginosis. She reports she tested positive for and was treated for bacterial vaginosis 3 weeks ago. They gave her a Metrogel prescription and she stated that this did not help. She still has a fishy foul smelling vaginal discharge. Is complaining of irritation in the vaginal area as well as some tailbone pain. States that the Metrogel never seems to help and that she has had clindamycin and Bactrim in the past that have helped. Has history of a bulge in her tailbone however she feels as though her tailbone is going to explode. Was seen by her primary care doctor for this and they ordered an x-ray. She denies any fevers, chills, or body aches. She denies any back pain other than the tailbone pain and denies any abdominal pain Related Data Allergies Allergy/AdvReac Type Severity Reaction Status Date / Time lansoprazole Allergy Severe FACE Verified 11/15/23 14:48 SWELLING ,RED nickel Allergy Intermediate Rash Verified 11/15/23 14:48 Review of Systems Review of Systems: Pertinent positives per HPI. Patient denies any fever, chills, rash, headache, visual changes, dizziness, cough, runny nose, sore throat, shortness of breath, chest pain, palpitations, nausea, vomiting, diarrhea, constipation, abdominal pain, or any urinary issues. [facility] Past Medical History Medical History ADD (attention deficit disorder) Anxiety Breast cancer, right breast Cervical muscle pain Depression Encounter for screening colonoscopy Exposure to 2019-nCoV Family hx of colon cancer requiring screening colonoscopy Herpes simplex disease History of iron deficiency Invasive ductal carcinoma of breast Mass of right breast on mammogram Pain in the coccyx Screening mammogram, encounter for Wellness examination Surgical History Surgical History H/O mastectomy History of biliary duct stent placement 2007 5 days after lap jeni due to SBO Hx laparoscopic cholecystectomy 2006 Family History Family History Grandparent Hypertension Family history of malignant neoplasm Family history of malignant neoplasm of breast Family history of coronary artery disease Diabetes mellitus Father Cerebrovascular accident Family history of heart disease in male family member before age 55 Alcohol abuse Seizure disorder Mother Hypertension Diabetes mellitus Kidney disease DM type 2 with diabetic mixed hyperlipidemia End stage renal disease Son No problems noted. Sibling No problems noted. 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
[2023-11-15 14:47] VITALS: BP 125/72; PULSE 75; RESP 18; TEMP 36.8; O2SAT 99
== END 2023-11-15 14:58 | disposition home or self-care (01) ==
PROVIDERS: Emergency Provider Nurse Practitioner Family; PCP Family Medicine
DX: N76.0 Acute vaginitis (principal); M53.3 Sacrococcygeal disorders, not elsewhere classified; Z85.3 Personal history of malignant neoplasm of breast; Z90.10 Acquired absence of unspecified breast and nipple; F98.8 Other specified behavioral and emotional disorders with onset usually occurring in childhood and adolescence; F41.9 Anxiety disorder, unspecified
CPT/HCPCS: 99213; G0463

== ENCOUNTER 2023-11-15 15:00 | Outpatient (CLI) | payer OTHER, SELFPAY ==
--- NOTE | ~2023-11-15 | XR_ITS ---
XR sacrum coccyx min 2V Ordering provider: Alona Hernandez APRN History: . no recent injury, severe tailbone pain for 5 months . Comparison: None. FINDINGS: BONES: No acute fracture or dislocation. JOINTS: The sacroiliac joint spaces are normal. SOFT TISSUES: Normal. IMPRESSION: No acute osseous abnormality sacrum. Reviewed, dictated and finalized at location A.
== END 2023-11-15 15:01 | disposition home or self-care (01) ==
LOC: GOSHIMG 15:02
PROVIDERS: PCP Family Medicine; Visit Provider Nurse Practitioner Adult Health
DX: M53.3 Sacrococcygeal disorders, not elsewhere classified (principal)
CPT/HCPCS: 72220

== ENCOUNTER 2024-05-25 13:23 | Emergency (ER) | payer OTHER, SELFPAY ==
[2024-05-25 13:37] VITALS: BP 133/82; PULSE 75; RESP 16; TEMP 36.6; O2SAT 99
--- NOTE | 2024-05-25 13:44 | ED_ITS ---
HPI - URI/Sore Throat General Chief Complaint: Upper Respiratory Infection Stated Complaint: Fever/Headache History of Present Illness HPI Narrative: 53-year-old female presented for complaint of nasal congestion and sinus pressure for over 1 month. Endorses subjective fever with body aches, tender neck glands, and facial pressure. Taking antihistamine, Flonase, Sudafed for symptoms. Denies shortness of breath, wheezing, nausea, vomiting, diarrhea or lethargy. Related Data Allergies Allergy/AdvReac Type Severity Reaction Status Date / Time lansoprazole Allergy Severe FACE Verified 05/25/24 13:30 SWELLING ,RED nickel Allergy Intermediate Rash Verified 05/25/24 13:30 Review of Systems Review of Systems: CONSTITUTIONAL: Denies body aches, fever, chills, or sweats. EYES: Denies visual changes, redness, or discharge. ENT: Reports rhinorrhea, congestion, denies otalgia. CARDIOVASCULAR: Denies chest pain, palpitations, or edema. RESPIRATORY: Denies dyspnea. GASTROINTESTINAL: Denies abdominal pain, nausea, vomiting, or diarrhea. SKIN: Denies rash MUSCULOSKELETAL: Denies back pain, joint pain, or myalgia. NEUROLOGIC: Denies headache PMFSH Past Medical History Medical History ADD (attention deficit disorder) Anxiety Breast cancer, right breast Cervical muscle pain Depression Encounter for screening colonoscopy Exposure to 2018-nCoV Family hx of colon cancer requiring screening colonoscopy Herpes simplex disease History of iron deficiency Invasive ductal carcinoma of breast Mass of right breast on mammogram Pain in the coccyx Screening mammogram, encounter for Wellness examination Surgical History Surgical History H/O mastectomy History of biliary duct stent placement 2006 5 days after lap jeni due to SBO Hx laparoscopic cholecystectomy 2006 Family History Family History Grandparent Hypertension Family history of malignant neoplasm Family history of malignant neoplasm of breast Family history of coronary artery disease Diabetes mellitus Father Cerebrovascular accident Family history of heart disease in male family member before age 55 Alcohol abuse Seizure disorder Mother Hypertension Diabetes mellitus Kidney disease DM type 2 with diabetic mixed hyperlipidemia End stage renal disease Son No problems noted. Sibling No problems noted. Other Carcinoma of colon Social History Social History Smoking status: Never smoker Second hand tobacco smoke exposure: No Alcohol intake: current Alcohol use details: occasionally Substance use: current Substance use type: marijuana Do You Feel Safe in your Home?: Yes Lack of Transportation: No Lack of Food: Never True Current Housing: I Have Housing Concerned About Future Housing: No Difficulty Paying Gas/Electric Bills: No Difficulty Paying for Meds: No Currently Unemployed: No Education: Master's Degree or Higher Difficulty w/ Childcare or Family Care: No Living arrangements: with family 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 EYES: conjunctivae clear ENT: Mucous membranes moist. TM pearly french with normal light reflex bilaterally; no tragal tenderness. Oropharynx last erythematous without lesions. No drooling, no hoarseness, no trismus, uvula midline. No tripod positioning, hot potato voice, or soft palate swelling. NECK: Supple. No lymphadenopathy CHEST: Clear to auscultation, breath sounds equal. HEART: Regular rate and rhythm. No murmur heard. SKIN: Warm, dry, no rash. NEURO: Alert and oriented x3. Course Course Emergency Course: Patient is aware of diagnosis, understands and agrees to treatment plan. Anticipatory guidance given. Patient agrees to follow-up as directed and is aware of reasons to seek care at the emergency department. Portions of this record may have been created with voice recognition software Level of Care: Express Care Visit Vital Signs Vital signs: Vital Signs Temperature 98 F 05/25/24 13:37 Pulse Rate 75 05/25/24 13:37 Respiratory Rate 16 05/25/24 13:37 Blood Pressure 133/82 05/25/24 13:37 Pulse Oximetry 99 05/25/24 13:37 Temperature 98 F 05/25/24 13:37 Pulse Rate 75 05/25/24 13:37 Respiratory Rate 16 05/25/24 13:37 Blood Pressure 133/82 05/25/24 13:37 Pulse Oximetry 99 05/25/24 13:37 MDM - URI/Sore Throat MDM Narrative Medical decision making narrative: Discussed physical exam findings consistent with sinusitis. Symptoms present over 1 month. Advised supportive measures and signs/symptoms to go to the ER. Pt is appropriate for outpt treatment and f/u. Differential Diagnosis Differential diagnosis: Likely upper respiratory infection, sinusitis, viral infection, bronchitis, influenza and pharyngitis Discharge Plan Discharge Clinical Impression: Sinusitis Patient Disposition: Home Condition: Stable Instructions: Antibiotic Form, Sinusitis (ED) Additional Instructions: Take antibiotic as directed Recommendations: Continue Flonase spray and Zyrtec (or Claritin/Anai) Tylenol 1000mg every 8 hours as needed for pain Rest, fluids, and increase humidity of the air at home. Follow up with your primary care provider in 1 week. Go to the ER for worsening symptoms or concerns. Patient Language: Greek Prescriptions: New prednisone 20 mg tablet 40 mg PO DAILY 3 Days Qty: 6 0RF amoxicillin-pot clavulanate 875-125 mg tablet 1 tablet PO Q12H 7 Days Qty: 14 0RF No Action valacyclovir [Valtrex] 500 mg tablet 500 mg PO DAILY Qty: 30 1RF gabapentin 300 mg capsule 300 mg PO TID Qty: 90 3RF nystatin-triamcinolone 100,000-0.1 unit/g-% cream 1 applic topical BID Qty: 30 1RF clonazepam 1 mg tablet 2 mg PO .QHS PRN (Reason: anxiety) Qty: 60 1RF Rx Instructions: Pt takes 1-2 at bedtime as needed cyclobenzaprine 10 mg tablet 10 mg PO QHS PRN (Reason: muscle spasm) Qty: 30 1RF meloxicam 15 mg tablet 15 mg PO DAILY Qty: 30 1RF methylphenidate HCl 10 mg tablet 10 mg PO DAILY Qty: 30 0RF Follow-up/Referrals: Edgar Mckeon MD [Primary Care Provider] - Time of Disposition: 13:55
[2024-05-25 13:52] LABS: EDINFLUASCREEN Negative (Negative); EDINFLUBSCREEN Negative (Negative)
[2024-05-25 13:52] LABS: EDCOVIDSCREEN Negative (Negative)
== END 2024-05-25 14:01 | disposition home or self-care (01) ==
PROVIDERS: Emergency Provider Nurse Practitioner Family; PCP Family Medicine
DX: J32.9 Chronic sinusitis, unspecified (principal); Z20.822 Contact with and (suspected) exposure to COVID-19; F98.8 Other specified behavioral and emotional disorders with onset usually occurring in childhood and adolescence; F41.9 Anxiety disorder, unspecified; Z85.3 Personal history of malignant neoplasm of breast
CPT/HCPCS: 87426; 87804; 99213; G0463

== ENCOUNTER 2024-08-13 13:40 | Emergency (ER) | payer OTHER, SELFPAY ==
--- NOTE | 2024-08-13 13:45 | ED.URI ---
HPI - URI/Sore Throat General Chief Complaint: Upper Respiratory Infection Stated Complaint: Sinus Infection Symptoms Source: patient Mode of arrival: ambulatory Limitations: no limitations History of Present Illness HPI Narrative: Patient is a 53-year-old female who presents to the clinic with complaints of frontal nasal congestion x 2 weeks. She has been vacationing in [place] when she got sick. She was prescribed an antibiotic from a doctor in [place] and lost her prescription in the airport on the way home. She states she was only able to complete 4 days of her antibiotic treatment. Her symptoms never fully resolved. She has been taking Sudafed and Tylenol, but has had minimal relief. Denies any body aches, chills, fevers, nausea, vomiting, or diarrhea. Related Data Allergies Allergy/AdvReac Type Severity Reaction Status Date / Time lansoprazole Allergy Severe FACE Verified 08/13/24 13:51 SWELLING ,RED nickel Allergy Intermediate Rash Verified 08/13/24 13:51 Review of Systems Review of Systems: CONSTITUTIONAL: Denies body aches, fever, chills, or sweats. EYES: Denies visual changes, redness, or discharge. ENT: Reports congestion. Denies sore throat, or otalgia. CARDIOVASCULAR: Denies chest pain, palpitations, or edema. RESPIRATORY: Denies cough or dyspnea. GASTROINTESTINAL: Denies abdominal pain, nausea, vomiting, or diarrhea. GENITOURINARY: Denies dysuria or hematuria. SKIN: Denies rash, itching, or wounds. MUSCULOSKELETAL: Denies back pain, joint pain, or myalgia. NEUROLOGIC: Denies headache, numbness, tingling, or weakness. PSYCH: Denies depression or anxiety. All systems reviewed & are unremarkable except as noted in HPI and below PMFSH Past Medical History Medical History Anxiety Cervical muscle pain Herpes simplex disease History of iron deficiency Wellness examination Pain in the coccyx Exposure to 2019-nCoV ADD (attention deficit disorder) Breast cancer, right breast Family hx of colon cancer requiring screening colonoscopy Encounter for screening colonoscopy Invasive ductal carcinoma of breast Mass of right breast on mammogram Screening mammogram, encounter for Depression Surgical History Surgical History H/O mastectomy History of biliary duct stent placement 2006 5 days after lap jeni due to SBO Hx laparoscopic cholecystectomy 2006 Family History Family History Grandparent Hypertension Family history of malignant neoplasm Family history of malignant neoplasm of breast Family history of coronary artery disease Diabetes mellitus Father Cerebrovascular accident Family history of heart disease in male family member before age 55 Alcohol abuse Seizure disorder Mother Hypertension Diabetes mellitus Kidney disease DM type 2 with diabetic mixed hyperlipidemia End stage renal disease Son No problems noted. Sibling No problems noted. Other Carcinoma of colon Social History Social History Smoking status: Never smoker Second hand tobacco smoke exposure: No Alcohol intake: current Alcohol use details: occasionally Substance use: current Substance use type: marijuana Do You Feel Safe in your Home?: Yes Lack of Transportation: No Lack of Food: Never True Current Housing: I Have Housing Concerned About Future Housing: No Difficulty Paying Gas/Electric Bills: No Difficulty Paying for Meds: No Currently Unemployed: No Education: Master's Degree or Higher Difficulty w/ Childcare or Family Care: No Living arrangements: with family 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 Please see nursing chart for further information. There is no relevant family history pertinent to the presenting complaint. Exam Narrative: GENERAL: Well-appearing, well-nourished, and in no acute distress. EYES: EOMI. No redness or drainage. Conjunctivae normal. ENT: Mucous membranes pink and moist. Nares clear. TMs fluid filled, but intact. Throat Erythematous without tonsillar exudate, uvula midline. Nasal congestion noted. NECK: Normal AROM. Supple. No lymphadenopathy. CHEST: No respiratory distress. Clear to auscultation. HEART: Regular rate and rhythm. No murmur appreciated. Normal peripheral pulses. ABDOMEN: Soft, nontender, nondistended, normal active bowel sounds. SKIN: Warm, dry, no rash. Capillary refill normal. Normal skin turgor. NEURO: No focal deficits. Alert and oriented x3. Gait steady. PSYCH: Normal affect. No signs of depression or anxiety. Course Course Level of Care: Express Care Visit MDM - URI/Sore Throat MDM Narrative Medical decision making narrative: Discussed physical exam findings. Augmentin prescription given. Advised supportive measures and signs/symptoms to go to the ER. Pt is appropriate for outpt treatment and follow up. Differential Diagnosis Differential diagnosis: Likely upper respiratory infection, sinusitis and viral infection Critical Care Time Critical Care Time Critical Care Time: No Discharge Plan Discharge Clinical Impression: Sinusitis Qualifiers: Sinusitis location: frontal Chronicity: acute Recurrence: non-recurrent Qualified Code(s): J01.10 - Acute frontal sinusitis, unspecified Patient Disposition: Home Condition: Stable Instructions: Antibiotic Form, Sinusitis (ED) Additional Instructions: Take antibiotic as prescribed. Recommend Flonase spray and Zyrtec (or Claritin/Anai) Tylenol every 8 hours as needed for pain Symptomatic treatment includes: rest, fluids, and increase humidity of the air at home. Follow up with your primary care provider in 1 week. Go to the ER for worsening symptoms or concerns. Patient Language: Slovenian Prescriptions: New amoxicillin-pot clavulanate 875-125 mg tablet 1 tablet PO Q12H 7 Days Qty: 14 0RF No Action fluconazole 150 mg tablet 150 mg PO DAILY Qty: 2 0RF valacyclovir [Valtrex] 500 mg tablet 500 mg PO DAILY Qty: 30 1RF gabapentin 300 mg capsule 300 mg PO TID Qty: 90 3RF nystatin-triamcinolone 100,000-0.1 unit/g-% cream 1 applic topical BID Qty: 30 1RF clonazepam 1 mg tablet 2 mg PO .QHS PRN (Reason: anxiety) Qty: 60 1RF Rx Instructions: Pt takes 1-2 at bedtime as needed methylphenidate HCl 10 mg tablet 10 mg PO DAILY Qty: 30 0RF cyclobenzaprine 10 mg tablet 10 mg PO QHS PRN (Reason: muscle spasm) Qty: 30 1RF meloxicam 15 mg tablet 15 mg PO DAILY Qty: 30 1RF Follow-up/Referrals: Edgar Mckeon MD [Primary Care Provider] - Stand Alone Forms: Work/School Release IP Time of Disposition: 14:05
[2024-08-13 13:51] VITALS: BP 112/84; PULSE 83; RESP 16; TEMP 36.5; O2SAT 100
== END 2024-08-13 14:13 | disposition home or self-care (01) ==
PROVIDERS: PCP Family Medicine
DX: J01.10 Acute frontal sinusitis, unspecified (principal); F41.9 Anxiety disorder, unspecified; F98.8 Other specified behavioral and emotional disorders with onset usually occurring in childhood and adolescence; F12.90 Cannabis use, unspecified, uncomplicated; Z85.3 Personal history of malignant neoplasm of breast
CPT/HCPCS: 99213; G0463

== ENCOUNTER 2024-08-31 17:59 | Emergency (ER) | payer OTHER, SELFPAY ==
--- OUTSIDE RECORDS SUMMARY | 2024-08-31 18:01 | XMS_ITS | Clinical Summary ---
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 This disclosure is being madepursuant to the Care Everywhere program and may not contain all information available regarding this patient. Last updated 17.[facility] [employer] Allergies Active Allergy Reactions Criticality Noted Date Comments Trace Metals Rash Medium 05/03/2021 Pt states starts out as a ache but turns into a rash Medications * Be aware that medications may not be up to date on this document. Alwaysverify current medications with the patient. gabapentin (Neurontin) 300 MG capsule Take 1 (one) capsule by mouth 3 times daily 04/15/2024 Active valACYclovir (Valtrex) 1 GM tablet Take 1 (one) tablet by mouth once daily 03/23/2024 Active clonazePAM (KlonoPIN) 1 MG tablet Take 1 (one) tablet by mouth 2 times daily Active meloxicam (Mobic) 7.5 MG tablet Take 1 (one) tablet by mouth once daily Active cyclobenzaprine (Flexeril) 5 MG tablet Take 1 (one) tablet by mouth 3 times daily as needed Active methylphenidate (Ritalin) 10 MG tablet Take 1 (one) tablet by mouth once daily 05/20/2024 Active triamcinolone acetonide (Kenalog) 0.1 % ointmentIndicat ions:Vulvar dystrophy Apply to external vulvar tissues once or twice daily. 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, estrogen receptor positive 03/17/2021 Encounters Date Type Department Care Team Description 06/17/2024 8:10 AM CDT Office Visit [facility] - [facility] [address] [place] [address] Ivana Streeter MD Vulvar dystrophy (Primary Dx) 06/17/2024 Travel from Last 3 Months Family History Medical History Relation Name Comments CAD (Coronary Artery Disease) Father Heart Failure Father Cancer - Breast Maternal Aunt CVA Maternal Grandfather Cancer - Breast Maternal Grandfather Cancer - Colon Maternal Grandfather CAD (Coronary Artery Disease) Maternal Grandmother Cancer - Breast Maternal Grandmother Depression Maternal Grandmother Diabetes; unknown type Maternal Grandmother High Cholesterol Maternal Grandmother Hypertension Maternal Grandmother Thyroid Disease Maternal Grandmother Depression Mother Diabetes; unknown type Mother Osteoporosis Mother Renal Disease Mother Relation Name Status Comments Father Maternal Aunt Alive Maternal Grandfather Maternal Grandmother Mother Social History Tobacco Use Types Packs/Day Years Used Date Smoking Tobacco: Never Smokeless Tobacco: Never Tobacco Cessation:Counseling Given: Not Answered Alcohol Use Standard Drinks/Week Comments Yes 0 (1 standard drink = 0.6 oz pur e alcohol) occasionally PHQ-2 Answer Date Recorded Patient Health Questionnaire-2 Score 0 06/17/2024 Comments No Sex and Gender Information Value Date Recorded Sex Assigned at Not on file 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 Gender Identity Not on file Sexual Orientation Not on file Last Filed Vital Signs Vital Sign Reading Time Taken Comments Blood Pressure 104/60 06/17/2024 8:02 AM CDT Pulse - - Temperature 37.1 C (98.8 F) 06/17/2024 8:02 AM CDT Respiratory Rate - - Oxygen Saturation - - Inhaled Oxygen Concentration - - Weight 56.7 kg (125 lb) 06/17/2024 8:02 AM CDT Height 175.3 cm (5' 9) 06/17/2024 8:02 AM CDT Body Mass Index 18.46 06/17/2024 8:02 AM CDT Plan of Treatment Health Maintenance Due Date Last Done Comments COLOGUARD (AGES 45-75) - COLON CA SCREENING 1972 COLON MONITORING 1972 COLONOSCOPY - COLON CA SCREENING 1972 CT COLONOGRAPHY - COLON CA SCREENING 1972 Colorectal Cancer Screening 1972 FIT - COLON CA SCREENING 1972 FLEX SIG - COLON CA SCREENING 1972 LIPID TESTING 1972 MAMMOGRAM 1972 HIV SCREENING 08/26/1987 HEPATITIS C SCREENING 08/21/1990 DTAP/TDAP/TD VACCINES (1 - Tdap) 08/26/1991 HEPATITIS B VACCINE (1 of 3 - 19+ 3-dose series) 08/26/1991 PAP SMEAR 1993 PNEUMOCOCCAL VACCINE 50+ (1 of 1 - PCV) 2022 ZOSTER VACCINE (1 of 2) 2022 COVID-19 VACCINE ( season) 2023 11/30/2022, 09/22/2021, 03/31/2020, Additional history exists INFLUENZA VACCINE (#1) 2024 12/28/2022, 2017 DEPRESSION SCREENING Completed 05/26/2024 HIB VACCINE Aged Out No longer eligi ble based on patient's age to complete this topic HPV VACCINE Aged Out No longer eligi ble based on patient's age to complete this topic MENINGOCOCCAL (Group B) VACCINE SHARED DECISION-MAKING Aged Out No longer eligible based on patient's age to complete this topic MENINGOCOCCAL GROUPS A/C/Y/W VACCINE Aged Out No longer eligible based on patient's age to complete this topic Procedures Procedure Name Priority Date/Time Associated Diagnosis Comments PATHOLOGY TISSUE Routine 06/17/2024 8:38 AM CDT Vulvar dystrophy IN BIOPSY VULVA/PERINEUM,ONE LESN Routine 06/17/2024 8:00 AM CDT Vulvar dystrophy from Last 3 Months Results * PATHOLOGY TISSUE (06/17/2024 8:38 AM CDT) Case Report Surgical Pathology Report Case: [id number] Authorizing Provider: Ivana Streeter MD Collected: 06/17/2024 08:38 AM Ordering Location: [facility] - Received: 06/17/2024 08:38 AM [facility] Pathologist: Linus Mancuso MD Specimen: Vagina Biopsy 06/26/2024 11:34 AM CDT [facility] Final Diagnosis Vulva, biopsy: - Fragment of squamous epithelium with minimal hyperkeratosis and minimal superficial chronic inflammation - Negative for dysplasia or carcinoma 06/26/2024 11:34 AM CDT [facility] at 1134 CDT Microscopic Description and Comment Multiple additional deeper levels were examined. No marked fibrosis or eosinophilic infiltrate is noted. The findings are nonspecific. No malignancy is seen. 06/26/2024 11:34 AM CDT [facility] Clinical History Vaginal itching. 06/26/2024 11:34 AM CDT [facility] Gross Description The requisition and specimen(s) are identified with the patient's name Annelise Elliott. Received in formalin, specimen A, consists of a 0.4 x 0.2 x 0.1 cm to-white tissue fragment, submitted in toto in cassette A1./BAJ 06/26/2024 11:34 AM CDT [facility] Pathologist Location at [facility] 06/26/2024 11:34 AM CDT [facility] Disclaimer The performance characteristics of all immunohistochemical and indirect immunofluorescence stains (if any) cited in this report were determined by the [facility]. Some of these tests were developed by our own laboratory and have not been cleared or approved by the US Food and Drug Administration. The FDA does not require this test to go through premarket FDA review. These tests are used for clinical purposes. They should not be regarded as investigational or for research. This laboratory is certified under the Clinical Laboratory Improvement Amendments (CLIA) as qualified to perform high complexity clinical laboratory testing. This case has been personally reviewed and interpreted by the attending (teaching) pathologist. 06/26/2024 11:34 AM CDT [facility] Embedded Images 06/26/2024 11:34 AM CDT [facility] Pathology/Cytolog y VAGINAL BIOPSY SPECIMEN / Unknown Collection / Unknown 06/17/2024 8:38 AM CDT 06/17/2024 8:38 AM CDT Comment:Patient with whiteni ng of tissues with itching. 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 Ivana Streeter MD LAB - PATHOLOGY/CYTOLOGY O RDERABLES Final Result [facility] [address] [place] [address], [facility] [phone] * IN BIOPSY VULVA/PERINEUM,ONE LESN (06/17/2024 8:00 AM CDT) Narrative Ivana Streeter MD - 06/17/2024 8:00 AM CDT Ivnaa Streeter MD 06/17/2024 9:41 AM Procedure Note: Pre-operative diagnosis: vulvar lesion Post-operative diagnosis: FLORINA Procedure Details: The risks, benefits, and alternatives were discussed in detail with the patient She states understanding of the risks, and requests to proceed with the procedure. All her questions were answered to her satisfaction, and she understands and agrees to appropriate follow up appointments. ICF obtained. The patient was placed in a dorsal lithotomy position. The biopsy site was cleaned with multiple swabs of Betadine (unless allergic to topical iodine, in which case hibiclens was used). The biopsy site was infiltrated with 1% lidocaine. A 4 mm punch biopsy was obtained. Specimen to pathology. Hemostasis was obtained with silver nitrite. EBL: minimal Assessment and Plan 1. Vulvar lesion: Biopsy obtained and specimen to pathology. 2. Post care instructions: Keep site clean. Rinse with water after urination. Cautioned that small amount of bleeding with increased activity could occur. 3. The patient tolerated the procedure well. Ivana Streeter MD PROCEDURE/MINOR SURGICAL O RDERABLES Final Result from Last 3 Months Insurance [employer] HE[employer] Care Teams Food Service Driver Relationship Specialty Start Date End Date Edgar Mckeon MD [address] [place] [address] PCP - General 02/23/21
[2024-08-31 18:09] VITALS: BP 130/83; PULSE 97; RESP 18; TEMP 36.8; O2SAT 98
--- OUTSIDE RECORDS SUMMARY | 2024-08-31 20:10 | XMS_ITS | Clinical Summary ---
Author Organization [facility] [address] [place] [address] Care Team Providers Care Merchandising Assistant Name Role Phone Edgar Mckeon MD Primary Care Provider [phone] Haylee Mak MD Unavailable [phone] August Moon MD Unavailable Allergies Active Allergy Reactions Criticality Noted Date Comments Trace Metals Rash Medium 05/03/2021 Pt states starts out as a ache but turns into a rash Medications clonazePAM (KlonoPIN) 1 mg tabletIndication s:SLEEP Take 1 tablet (1 mg total) by mouth nightly as needed for anxiety 2 Active methylphenidate HCl (RITALIN) 10 mg tablet 1 Active cyclobenzaprine (FLEXERIL) 10 mg tablet 3 Active meloxicam (MOBIC) 15 mg tablet Take 1 tablet (15 mg total) by mouth daily 4 Active clotrimazole 1 % creamIndications :cutaneous candidiasis Apply topically 2 (two) times a day 30 g 2 5 Active valACYclovir (VALTREX) 1 gram tablet Take 1 tablet (1,000 mg total) by mouth daily 30 tablet 6 5 Active Active Problems Problem Noted Date Diagnosed Date Herpes genitalis in women 06/22/2023 Assessment & Plan (06/22/2023 5:52 PM CDT): Patient was previously on daily suppression with valacyclovir since she has infrequent episodes of flare-ups, can treat episodically with a 5 day course of valacyclovir 1 g once daily when she starts having symptoms Latent syphilis, unspecified as early or late Assessment & Plan (06/22/2023 5:49 PM CDT): #Latent syphilis of unknown duration: The patient was noted have an RPR of 1:1 and positive FTA-ABS at evaluation with PCP. She did not have any neurological symptoms. Given unknown duration, was treated with 3 doses of benzathine penicillin (last dose: 01/15/2023). -RPR nonreactive and treponemal antibodies negative today Plan: -appropriate decrease in RPR titers. 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 However, RPR at the PCP office was reactive at 1:1 and confirmed with the treponemal test -will treat as late latent syphilis with 3 doses of benzathine penicillin starting today Malignant neoplasm of upper- outer quadrant of right breast in female, estrogen receptor positive 03/17/2021 Immunizations Immunization Administration Dates Next Due Influenza, Quadrivalent, Spl it, Preservative Free, Intramuscular 12/28/2022 Influenza, Trivalent, Preservative Free, Intramu scular 03/21/2017 Tdap 01/27/2021 Surgical History Surgery Date Site/Laterality Comments GALLBLADDER SURGERY 02/18/2007 - 02/18/2008 BREAST BIOPSY 01/18/2021 - 02/17/2021 Right IDC BREAST BIOPSY 03/24/2021 Right MASTECTOMY double Medical History Medical History Date Comments Depression PONV (postoperative nausea and vomiting) Motion sickness Anxiety Breast cancer (HCC) right Family History Medical History Relation Name Comments Cancer Father's Brother Breast cancer Maternal Grandfather Breast cancer Maternal Grandmother Rectal cancer Maternal Grandmother Diabetes Mother Hypertension Mother Breast cancer Mother's Sister Cancer Other 1 Pat Uncle #2 Cancer Other 2 Pat Uncle #3 Breast cancer Paternal Grandmother Anesthesia problems Neg Hx Relation Name Status Comments Father Father's Brother Maternal Grandfather Maternal Grandmother Mother Alive Mother's Sister Other 1 Pat Uncle #2 Other 2 Pat Uncle #3 Paternal Grandmother Social History Tobacco Use Types Packs/Day Years Used Date Smoking Tobacco: Never Smokeless Tobacco: Never AUDIT-C Answer Date Recorded Q1: How often do you have a drink containing alc ohol? 2-4 times a month 04/04/2021 Q2: How many drinks containi ng alcohol do you have on a typical day when you are drinking? 1 or 2 04/04/2021 Q3: How often do you have si x or more drinks on one occasion? Never 04/04/2021 Comments No Sex and Gender Information Value Date Recorded Sex Assigned at Not on file Legal Sex Female 8:43 AM PLYWOOD AND VENEER REPAIRER Gender Identity Female 12/27/2022 7:14 PM PLYWOOD AND VENEER REPAIRER Sexual Orientation Bisexual 12/27/2022 7: 14 PM PLYWOOD AND VENEER REPAIRER Obstetrics History Last Filed Vital Signs Vital Sign Reading Time Taken Comments Blood Pressure 117/78 03/23/2024 10:58 AM PLYWOOD AND VENEER REPAIRER Pulse 75 03/23/2024 10:58 AM PLYWOOD AND VENEER REPAIRER Temperature 36.9 C (98.4 F) 03/23/2024 10:58 AM PLYWOOD AND VENEER REPAIRER Respiratory Rate 18 06/21/2023 11:14 AM CDT Oxygen Saturation 98% 03/23/2024 10:58 AM PLYWOOD AND VENEER REPAIRER Inhaled Oxygen Concentration - - Weight 53.5 kg (118 lb) 03/23/2024 10:58 AM PLYWOOD AND VENEER REPAIRER Height 172 cm (5' 7.72) 03/23/2024 10:58 AM PLYWOOD AND VENEER REPAIRER Body Mass Index 18.09 03/23/2024 10:58 AM PLYWOOD AND VENEER REPAIRER Plan of Treatment Health Maintenance Due Date Last Done Comments Breast Cancer Screening-Mammogram 1972 Cervical Cancer Screening 1972 Colon Cancer Screening-Colonoscopy 1972 Depression Screening 1972 Hepatitis C Screening 1972 Hepatitis B Screening 1990 Regular Well Visit/Exam 18-64 1990 Zoster Vaccine (1 of 2) 2022 Covid-19 Vaccine (3 - 2023-2 5 season) 2023 03/31/2020, 03/03/2020 Influenza Vaccine (#1) 2024 3, 03/21/2017 DTaP/Tdap/Td Vaccine (2 - Td or Tdap) 01/27/2031 01/27/2021 Pneumococcal vaccine <65 Aged Out No longer eligible based on patient's age to complete this topic Medical Devices Implanted Type Area Alarm Technician Device Identifier Shelf Expiration Date Model / Serial / Lot [employer] [id number] Alloderm Select L19.3 Cm X W9.6 Cm Allograft Regenerative Perforate Thk.4-2.4 Mm Thick Medium Contour Matrix Tissue - [id number] Implanted:Qty: 1 on 05/03/2021 by Addie Powers MD at [facility] Breast Left: Breast [employer] 11/17/2022 [id number] / / [id number] [employer] [id number] Alloderm Perforate Regenerative Thick Medium 132sq Cm Matrix - [id number] Implanted:Qty: 1 on 05/03/2021 by Addie Powers MD at [facility] Breast Left: Breast [employer] 02/17/2022 [id number] / / [id number] [employer] [id number] Alloderm Perforate Regenerative Thick Medium 132sq Cm Matrix - [id number] Implanted:Qty: 1 on 05/03/2021 by Addie Powers MD at [facility] Breast Right: Breast [employer] 02/17/2022 [id number] / / [id number] [employer] [id number] Alloderm Perforate Regenerative Thick Medium 132sq Cm Matrix - [id number] Implanted:Qty: 1 on 05/03/2021 by Addie Powers MD at [facility] Breast Right: Breast [employer] 02/17/2022 [id number] / / [id number] [employer] Sslp-235 Natrelle Inspira Smooth Low Plus Profile Implant 235 Cc Breast Softtouch - [id number] - [id number] Implanted:Qty: 1 on 05/03/2021 by Haylee Mak MD at [facility] Breast Left: Breast [employer] [id number] 11/27/2024 SSLP-235 / [id number] / [id number] [employer] Sslp-235 Natrelle Inspira Smooth Low Plus Profile Implant 235 Cc Breast Softtouch - [id number] - [id number] Implanted:Qty: 1 on 05/03/2021 by Haylee Mak MD at [facility] Breast Left: Breast [employer] [id number] 05/16/2025 SSLP-235 / [id number] / [id number] Insurance [id number] [place] [id number] [facility] [id number] [facility] [id number] Care Teams Merchandising Assistant Relationship Specialty Start Date End Date Edgar Mckeon MD PCP - General Family Medicine 02/23/21 Haylee Mak MD [address] [facility] [address] [place] [address] Referring Physician Plastic Surgery 05/03/21 August Moon MD [address] [facility], [facility] [address] [place] [address] Consulting Physician Medical Oncology 05/10/21
--- OUTSIDE RECORDS SUMMARY | 2024-08-31 20:10 | XMS_ITS | Referral Summary ---
Author Organization [facility] [address] Address [address] [place] [address] Care Team Providers Care Machine Ii Engraver Name Role Phone Edgar Mckeon MD Primary Care Provider [phone] Haylee Mak MD Unavailable [phone] August Moon MD Unavailable Allergies Active Allergy [...] months Assessment & Plan (01/02/2023 5:20 PM CMO): #Latent syphilis of unknown duration: -would classify [...] Preservative Free, Intramu scular 03/21/2017 Tdap 01/27/2021 Social History Tobacco Use Types Packs/Day Years [...] on file Legal Sex Female 8:43 AM CMO Gender Identity Female 12/27/2022 7:14 PM CMO Sexual Orientation Bisexual 12/27/2022 7: 14 PM CMO Last Filed Vital Signs Vital Sign Reading Time Taken Comments Blood Pressure 117/78 03/23/2024 10:58 AM CMO Pulse 75 03/23/2024 10:58 AM CMO Temperature 36.9 C (98.4 F) 03/23/2024 10:58 AM CMO Respiratory Rate 18 06/21/2023 11:14 AM CDT Oxygen Saturation 98% 03/23/2024 10:58 AM CMO Inhaled Oxygen Concentration - - Weight 53.5 kg (118 lb) 03/23/2024 10:58 AM CMO Height 172 cm (5' 7.72) 03/23/2024 10:58 AM CMO Body Mass Index 18.09 03/23/2024 10:58 AM CMO Plan of Treatment Not on file Medical Devices Implanted Type Area Pricing Analyst Device Identifier Shelf Expiration Date Model / Serial / Lot [employer] [id number] Alloderm Select L19.3 Cm X W9.6 Cm Allograft Regenerative Perforate Thk.4-2.4 Mm Thick Medium Contour Matrix Tissue - [id number] Implanted:Qty: 1 on 05/03/2021 by Addie Powers MD at [facility] Breast Left: Breast [employer] 11/17/2022 [id number] / / [id number] [employer] [id number] Alloderm Perforate Regenerative Thick Medium 132sq Cm Matrix - [id number] Implanted:Qty: 1 on 05/03/2021 by Addie Powers MD at [facility] Breast Left: Breast [employer] 02/17/2022 [id number] / / [id number] [employer] [id number] Alloderm Perforate Regenerative Thick Medium 132sq Cm Matrix - [id number] Implanted:Qty: 1 on 05/03/2021 by Addie Powers MD at [facility] Breast Right: Breast [employer] 02/17/2022 [id number] / / [id number] [employer] [id number] Alloderm Perforate Regenerative Thick Medium 132sq Cm Matrix - [id number] Implanted:Qty: 1 on 05/03/2021 by Addie Powers MD at [facility] Breast Right: Breast [employer] 02/17/2022 [id number] / / [id number] [employer] Sslp-235 Natrelle Inspira Smooth Low Plus Profile Implant 235 Cc Breast Softtouch - [id number] - [id number] Implanted:Qty: 1 on 05/03/2021 by Haylee Mak MD at [facility] Breast Left: Breast [employer] [id number] 11/27/2024 SSLP-235 / [id number] / [id number] [employer] Sslp-235 Natrelle Inspira Smooth Low Plus Profile Implant 235 Cc Breast Softtouch - [id number] - [id number] Implanted:Qty: 1 on 05/03/2021 by Haylee Mak MD at [facility] Breast Left: Breast [employer] [id number] 05/16/2025 SSLP-235 / [id number] / [id number] Insurance [employer] [id number] [employer] [id number] Care Teams Machine Ii Engraver Relationship Specialty Start Date End Date Edgar Mckeon MD PCP - General Family Medicine 02/23/21 Haylee Mak MD [address] [facility] [address] [place] [address] Referring Physician Plastic Surgery 05/03/21 August Moon MD [address] [facility], [facility] [address] [place] [address] Consulting Physician Medical Oncology 05/10/21
--- OUTSIDE RECORDS SUMMARY | 2024-08-31 20:10 | XMS_ITS | Clinical Summary ---
Author Organization [facility] Address [address] [facility] [place] [address] Care Team Providers Care Anatomic Pathology Assistant Name Role Phone Edgar Mckeon MD Primary Care Provider [phone] Source Comments [facility] Affiliates and Associated Physician Practices is amultiple site organization consisting of ambulatory clinics and hospital sitesin [place], [place], [place] and [place]. This disclosure is being madepursuant to the Care Everywhere program and may not contain all information available regarding this patient. Last updated 17.[facility] 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 Gender Identity Not on file Sexual Orientation [...] Routine 06/17/2024 8:38 AM CDT Vulvar dystrophy [place] BIOPSY VULVA/PERINEUM,ONE LESN Routine 06/17/2024 8:00 AM CDT Vulvar dystrophy from Last 3 Months Results * PATHOLOGY TISSUE (06/17/2024 8:38 AM CDT) Case Report Surgical Pathology Report Case: [id number] Authorizing Provider: Ivana Streeter MD Collected: 06/17/2024 08:38 AM Ordering Location: [facility] - Received: 06/17/2024 08:38 AM REGISTERED TRAVEL NURSE Pathologist: Linus Mancuso MD Specimen: Vagina Biopsy [...] CDT [facility] Pathologist Location at [facility] 06/26/2024 11:34 AM CDT [facility] Disclaimer The performance characteristics of all immunohistochemical and indirect immunofluorescence stains (if any) cited in this report were determined by the Histopathology Laboratory of [facility]. Some of these tests were developed by [...] attending (teaching) pathologist. 06/26/2024 11:34 AM CDT [facility] Embedded Images 06/26/2024 11:34 AM CDT [facility] Pathology/Cytolog y VAGINAL BIOPSY SPECIMEN / Unknown Collection / Unknown 06/17/2024 8:38 AM CDT 06/17/2024 8:38 AM CDT Comment:Patient with whiteni ng of tissues with itching. 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
[2024-08-31 20:15] VITALS: RESP 16; O2SAT 100
--- NOTE | 2024-08-31 20:15 | ED_ITS ---
HPI - General Adult General Chief complaint: Recheck/Abnormal Lab/Rx Stated complaint: possible implant leaking Time Seen by Provider: 08/31/24 20:02 History of Present Illness HPI narrative: Pt presents with pain in right breast and into right axilla for several weeks. Pt noticed a twinge of pain when unloading luggage from overhead bin on airplane several weeks ago but this resolved before the pain became more persistent. Pt has not noticed any change in size or lumps in breast. Related Data Allergies Allergy/AdvReac Type Severity Reaction Status Date / Time lansoprazole Allergy Severe FACE Verified 08/31/24 18:01 SWELLING ,RED nickel Allergy Intermediate Rash Verified 08/31/24 18:01 Review of Systems Review of Systems: All systems reviewed & are unremarkable except as noted in HPI and below PMFSH Past Medical History Medical History Anxiety Cervical muscle pain Herpes simplex disease History of iron deficiency Wellness examination Pain in the coccyx Exposure to 2019-nCoV ADD (attention deficit disorder) Breast cancer, right breast Family hx of colon cancer requiring screening colonoscopy Encounter for screening colonoscopy Invasive ductal carcinoma of breast Mass of right breast on mammogram Screening mammogram, encounter for Depression Surgical History Surgical History H/O mastectomy History of biliary duct stent placement 2006 5 days after lap jeni due to SBO Hx laparoscopic cholecystectomy 2006 Family History Family History Grandparent Hypertension Family history of malignant neoplasm Family history of malignant neoplasm of breast Family history of coronary artery disease Diabetes mellitus Father Cerebrovascular accident Family history of heart disease in male family member before age 55 Alcohol abuse Seizure disorder Mother Hypertension Diabetes mellitus Kidney disease DM type 2 with diabetic mixed hyperlipidemia End stage renal disease Son No problems noted. Sibling No problems noted. Other Carcinoma of colon Social History Social History Smoking status: Never smoker Second hand tobacco smoke exposure: No Alcohol intake: current Alcohol use details: occasionally Substance use: current Substance use type: marijuana Do You Feel Safe in your Home?: Yes Lack of Transportation: No Lack of Food: Never True Current Housing: I Have Housing Concerned About Future Housing: No Difficulty Paying Gas/Electric Bills: No Difficulty Paying for Meds: No Currently Unemployed: No Education: Master's Degree or Higher Difficulty w/ Childcare or Family Care: No Living arrangements: with family Occupation/Education: occupation 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 Gender identity (if verbalized by the patient): Female Spiritual care concerns: No Exam Const: General: healthy appearing and no acute distress Nutritional Appearance: well nourished Orientation/consciousness: patient oriented x3 Limitations: no limitations Chest: Chest palpation & inspection: normal inspection of the chest and tenderness (tender above breast in axilla no lumps or abnormality noted in breast) Resp: Effort & Inspection: normal respiratory effort Auscultation: clear to auscultation bilaterally Cardio: Rate: regular rate Rhythm: regular rhythm GI: GI Palp: Yes Soft to palpation Auscultation: normal bowel sounds Skin: General skin exam: normal color Rashes: no rashes Neuro: General: patient oriented x3, moves all extremities, no meningeal signs and no focal motor deficits Extrem: General: normal to inspection and no clubbing, cyanosis or edema Psych: Mental Status: mental status grossly normal Affect: normal affect Attitude: cooperative Course Vital Signs Vital signs: Vital Signs Temperature 98.2 F 08/31/24 18:09 Pulse Rate 97 08/31/24 18:09 Respiratory Rate 18 08/31/24 18:09 Blood Pressure 130/83 08/31/24 18:09 Pulse Oximetry 98 08/31/24 18:09 Temperature 98.2 F 08/31/24 18:09 Pulse Rate 74 08/31/24 20:18 Respiratory Rate 16 08/31/24 20:18 Blood Pressure 128/100 H 08/31/24 20:18 Pulse Oximetry 100 08/31/24 20:18 Medical Decision Making MDM Narrative Medical decision making narrative: Pt has pain in right axilla and breast and is concerned her implant may be leaking. will order ultrasound right breast. Dr Knott called and said she really needs a breast MRI rather htan an US. Talked to patient and will treat pain and have her follow up with Dr Seymour for eval and mri if needed. Pt is comfortable with this. Vital Signs Vital Signs: Vital Signs Temperature 98.2 F 08/31/24 18:09 Pulse Rate 97 08/31/24 18:09 Respiratory Rate 18 08/31/24 18:09 Blood Pressure 130/83 08/31/24 18:09 Pulse Oximetry 98 08/31/24 18:09 Temperature 98.2 F 08/31/24 18:09 Pulse Rate 74 08/31/24 20:18 Respiratory Rate 16 08/31/24 20:18 Blood Pressure 128/100 H 08/31/24 20:18 Pulse Oximetry 100 08/31/24 20:18 Discharge Plan Discharge Clinical Impression: Breast pain, right Patient Disposition: Home Condition: Stable Instructions: Antibiotic Form, Chest Wall Pain (ED) Patient Language: Senegalese Prescriptions: New naproxen [Naprosyn] 500 mg tablet 500 mg PO BID Qty: 20 0RF methocarbamol 500 mg tablet 500 mg PO TID Qty: 20 0RF No Action fluconazole 150 mg tablet 150 mg PO DAILY Qty: 2 0RF amoxicillin-pot clavulanate 875-125 mg tablet 1 tablet PO Q12H 7 Days Qty: 14 0RF valacyclovir [Valtrex] 500 mg tablet 500 mg PO DAILY Qty: 30 1RF gabapentin 300 mg capsule 300 mg PO TID Qty: 90 3RF nystatin-triamcinolone 100,000-0.1 unit/g-% cream 1 applic topical BID Qty: 30 1RF methylphenidate HCl 10 mg tablet 10 mg PO DAILY Qty: 30 0RF cyclobenzaprine 10 mg tablet 10 mg PO QHS PRN (Reason: muscle spasm) Qty: 30 1RF meloxicam 15 mg tablet 15 mg PO DAILY Qty: 30 1RF clonazepam 1 mg tablet 2 mg PO .QHS PRN (Reason: anxiety) Qty: 60 1RF Rx Instructions: Pt takes 1-2 at bedtime as needed Follow-up/Referrals: Lucho King MD [Physician] - Edagr Mckeon MD [Primary Care Provider] -
[2024-08-31 20:18] VITALS: BP 128/100; PULSE 74; RESP 16; O2SAT 100
[2024-08-31 20:33] LABS: Hematocrit 37.1 % (37.0-47.0); Hemoglobin 12.7 g/dL (12.0-15.0); Immature Granulocyte Percent A 0.3 % (0-0.5); Lymphocytes Absolute Auto 1.63 K/mm3 (0.9-3.2); Mean Corpuscular HGB Conc 34.2 g/dl (32-36); Mean Corpuscular Hemoglobin 32.1 pg (26-34); Mean Corpuscular Volume 93.7 fl (80-100); Nucleated Red Blood Cells Absolute Auto 0.000 K/mm3 (0.0-0.012); Nucleated Red Blood Cells Perc 0.0 % (0.0-0.2); Platelet Count Result 228 k/mm3 (150-375); Red Blood Count 3.96 M/mm3 (4.2-5.4); White Blood Count 6.6 K/mm3 (4.5-10.0)
[2024-08-31 20:48] LABS: Alanine Aminotransferase 16 U/L (6-35); Albumin Level 4.2 g/dL (3.5-5.1); Alkaline Phosphatase 36 U/L (38-126); Anion Gap 7 mmol/L (4-12); Aspartate Amino Transferase 30 U/L (14-36); Bilirubin,Total 0.2 mg/dL (0.2-1.3); Blood Urea Nitrogen 16 mg/dL (7-17); CRP < 0.5 mg/dL (<1.0); Calcium 9.2 mg/dL (8.4-10.2); Carbon Dioxide 29 mmol/L (22-30); Chloride 103 mmol/L (98-107); Estimated CRCL calculation 62 ml/min; Estimated Glomerular Filt Rate > 60; Glucose 95 mg/dL (65-110); Magnesium 2.3 mg/dL (1.6-2.3); Potassium 3.7 mmol/L (3.4-5.0); Sodium 139 mmol/L (137-145); Total Protein 7.1 g/dL (6.3-8.2)
[2024-08-31 20:49] VITALS: BP 128/83; PULSE 67; RESP 16; O2SAT 100
[2024-08-31 20:50] VITALS: BP 128/83; PULSE 67; RESP 16; O2SAT 100
== END 2024-08-31 20:52 | disposition home or self-care (01) ==
PROVIDERS: Emergency Medicine; Emergency Provider Emergency Medicine; PCP Family Medicine
DX: N64.4 Mastodynia (principal); Z98.82 Breast implant status; F98.8 Other specified behavioral and emotional disorders with onset usually occurring in childhood and adolescence; F32.A Depression, unspecified; F41.9 Anxiety disorder, unspecified; Z85.3 Personal history of malignant neoplasm of breast; Z90.10 Acquired absence of unspecified breast and nipple; Z90.49 Acquired absence of other specified parts of digestive tract; Z79.899 Other long term (current) drug therapy
CPT/HCPCS: 36415; 80053; 83735; 85025; 85652; 86140; 99283